=== PATIENT | male | born 1970 | race Caucasian/White ===

== ENCOUNTER → 2021-02-02 | Day surgery (SDC) | payer OTHER ==
[~2021-02-02] MED LIST: Albumin 25% 100 ML ONE; Lidocaine 1% PF 5 ML VIAL ONE; Sodium Bicarbonate 2.5 MEQ/5 ML VIAL ONE
[2021-02-02 09:27] VITALS: BP 105/58; TEMP 98.2
== END ==
LOC: CSHULT 08:39
PROVIDERS: ATTEND Physician Assistant Medical
DX: R18.8 Other ascites (principal)
CPT/HCPCS: 49083; P9047

== ENCOUNTER → 2021-02-09 | Day surgery (SDC) | payer OTHER | LOC: CSHULT 08:16 | PROVIDERS: ATTEND Physician Assistant Medical | DX: R18.8 Other ascites (principal) | CPT/HCPCS: 49083; P9047 ==

== ENCOUNTER 2021-02-22 10:47 | Day surgery (SDC) | payer OTHER ==
[2021-02-22] MEDS ORDERED: Lidocaine 1% PF 5 ML VIAL ONE (11:12)
[2021-02-22] MEDS ORDERED: Sodium Bicarbonate 2.5 MEQ/5 ML VIAL ONE (11:13)
[2021-02-22 11:27] VITALS: BP 135/75; TEMP 97.3
[2021-02-22] MEDS ORDERED: FLU VACC QS2021-22(6MOS UP)/PF 60 MCG/0.5 ML SYRINGE IM ONE (11:30)
[2021-02-22] MEDS ORDERED: Albumin 25% 100 ML ONE (11:57)
== END 2021-02-22 12:45 | disposition home or self-care (01) ==
LOC: CSHULT 10:47
PROVIDERS: ATTEND Physician Assistant Medical
DX: R18.8 Other ascites (principal)
CPT/HCPCS: 49083; P9047

== ENCOUNTER 2021-02-26 14:12 | Outpatient (CLI) | payer SELFPAY ==
[2021-02-26] MEDS ORDERED: Albumin 25% 100 ML ONE (14:30)
[2021-02-26] MEDS ORDERED: Lidocaine 1% PF 5 ML VIAL ONE (14:33)
[2021-02-26] MEDS ORDERED: Sodium Bicarbonate 2.5 MEQ/5 ML VIAL ONE (14:33)
[2021-02-26 14:53] VITALS: BP 113/68; TEMP 97.8
[2021-02-26] MEDS ORDERED: FLU VACC QS2021-22(6MOS UP)/PF 60 MCG/0.5 ML SYRINGE IM ONE (15:45)
[2021-02-26 15:54] LABS: BF Color Yellow; Body Fluid Source Ascites Body Fluid; Clarity Hazy (Clear); Tube # EDTA
[2021-02-26 16:16] LABS: BF Segmented Neutrophils 2 %; Cell Count Non Hematic 82 %; Lymphocytes 16 %
== END 2021-02-26 15:37 | disposition home or self-care (01) ==
LOC: CSHCCL 14:12
PROVIDERS: ATTEND Physician Assistant Medical
DX: K70.31 Alcoholic cirrhosis of liver with ascites (principal)
CPT/HCPCS: 49083; 87070; 87205; 89051; P9047

== ENCOUNTER 2021-03-02 08:40 | Day surgery (SDC) | payer OTHER ==
[2021-03-02] MEDS ORDERED: Lidocaine 1% PF 5 ML VIAL ONE (09:53)
[2021-03-02] MEDS ORDERED: Sodium Bicarbonate 2.5 MEQ/5 ML VIAL ONE (09:53)
[2021-03-02] MEDS ORDERED: Albumin 25% 100 ML ONE (09:57)
[2021-03-02 11:46] LABS: Anion Gap 15 mmol/L (10-20); BUN (Urea Nitrogen) 43 mg/dL (8.9-20.6); Calc. Creatinine Clearance 0 mL/min (70-130); Calcium 9.3 mg/dL (7.8-10.44); Carbon Dioxide 18 mmol/L (22-29); Chloride 99 mmol/L (98-107); Glucose 146 mg/dL (70-105); Potassium 4.1 mmol/L (3.5-5.1); Sodium 128 mmol/L (136-145)
== END 2021-03-02 11:25 | disposition home or self-care (01) ==
LOC: CSHULT 08:40
PROVIDERS: ATTEND Physician Assistant Medical
DX: R18.8 Other ascites (principal); K74.60 Unspecified cirrhosis of liver; I85.10 Secondary esophageal varices without bleeding
CPT/HCPCS: 49083; 80048; P9047

== ENCOUNTER 2021-03-05 08:49 | Day surgery (SDC) | payer SELFPAY ==
[2021-03-05 09:35] VITALS: BP 109/66; TEMP 97.6
[2021-03-05] MEDS ORDERED: Lidocaine 1% PF 5 ML VIAL ONE (09:39)
[2021-03-05] MEDS ORDERED: Albumin 25% 100 ML ONE (09:39)
[2021-03-05] MEDS ORDERED: Sodium Bicarbonate 2.5 MEQ/5 ML VIAL ONE (09:40)
[2021-03-05] MEDS ORDERED: FLU VACC QS2021-22(6MOS UP)/PF 60 MCG/0.5 ML SYRINGE IM ONE (10:00)
== END 2021-03-05 10:29 | disposition home or self-care (01) ==
LOC: CSHULT 08:49
PROVIDERS: ATTEND Internal Medicine Gastroenterology
DX: R18.8 Other ascites (principal)
CPT/HCPCS: 49083; P9047

== ENCOUNTER 2021-03-09 08:48 | Day surgery (SDC) | payer OTHER ==
[2021-03-09] MEDS ORDERED: Sodium Bicarbonate 2.5 MEQ/5 ML VIAL ONE (08:58)
[2021-03-09 09:30] VITALS: BP 127/76
[2021-03-09] MEDS ORDERED: Albumin 25% 100 ML ONE (09:33)
[2021-03-09] MEDS ORDERED: Lidocaine 1% PF 5 ML VIAL ONE (09:34)
[2021-03-09] MEDS ORDERED: FLU VACC QS2021-22(6MOS UP)/PF 60 MCG/0.5 ML SYRINGE IM ONE (09:45)
== END 2021-03-09 10:30 | disposition home or self-care (01) ==
LOC: CSHULT 08:48
PROVIDERS: ATTEND Physician Assistant Medical
DX: R18.8 Other ascites (principal); K74.60 Unspecified cirrhosis of liver
CPT/HCPCS: 49083; P9047

== ENCOUNTER 2021-03-12 08:59 | Day surgery (SDC) | payer OTHER ==
[2021-03-12] MEDS ORDERED: Lidocaine 1% PF 5 ML VIAL ONE (09:06)
[2021-03-12] MEDS ORDERED: Albumin 25% 100 ML ONE (09:06)
[2021-03-12] MEDS ORDERED: Sodium Bicarbonate 2.5 MEQ/5 ML VIAL ONE (09:06)
[2021-03-12 09:31] VITALS: BP 120/64; TEMP 97.2
== END 2021-03-12 10:34 | disposition home or self-care (01) ==
LOC: CSHULT 08:59
PROVIDERS: ATTEND Physician Assistant Medical
DX: R18.8 Other ascites (principal)
CPT/HCPCS: 49083; P9047

== ENCOUNTER 2021-03-16 08:57 | Day surgery (SDC) | payer OTHER ==
[2021-03-16] MEDS ORDERED: Albumin 25% 100 ML ONE (09:43)
[2021-03-16] MEDS ORDERED: Lidocaine 1% w/Epinephrine 1:200K 30 ML VIAL ONE ×2 (09:43)
[2021-03-16] MEDS ORDERED: Lidocaine 1% PF 5 ML VIAL ONE (09:44)
[2021-03-16 09:45] LABS: #Basophils 0.1 10x3/uL (0.0-0.2); #Eosinphils 0.3 10x3/uL (0.0-0.5); #Monocytes 0.8 10x3/uL (0.0-1.1); #Neutrophils 7.4 10x3/uL (1.5-8.4); %Basophils 0.8 % (0.0-2.0); %Eosinophils 2.9 % (0.0-6.0); %Lymphocytes 8.8 % (18.0-47.0); %Monocytes 8.2 % (0.0-10.0); %Neutrophils 78.2 % (40.0-75.0); Hemoglobin 10.9 g/dL (13.5-17.5); Mean Corpuscular HGB CONC 33.6 g/dL (32.0-36.0); Mean Corpuscular Hemoglobin 28.5 pg (27.0-33.0); Mean Corpuscular Volume 84.6 fl (81.2-95.1); Mean Platelet Volume 9.5 fl (7.4-10.4); Platelet Count 178 10x3/uL (150-450); RBC Distribution Width 18.4 % (11.5-14.5); Red Blood Cell (RBC) Count 3.83 10x6/uL (4.32-5.72); White Blood Cell (WBC) Count 9.5 10x3/uL (3.5-10.5)
[2021-03-16 09:53] LABS: PTT 27.5 sec (22.0-33.0)
== END 2021-03-16 11:10 | disposition home or self-care (01) ==
LOC: CSHULT 08:57
PROVIDERS: ATTEND Physician Assistant Medical
DX: R18.8 Other ascites (principal)
CPT/HCPCS: 49083; 85025; 85610; 85730; P9047

== ENCOUNTER 2021-03-25 11:51 | Day surgery (SDC) | payer OTHER ==
[2021-03-25] MEDS ORDERED: Lidocaine 1% PF 5 ML VIAL ONE (12:16)
[2021-03-25] MEDS ORDERED: Albumin 25% 100 ML ONE (12:16)
[2021-03-25 13:41] VITALS: BP 108/62; TEMP 97.8
== END 2021-03-25 13:30 | disposition home or self-care (01) ==
LOC: CSHULT 11:51
PROVIDERS: ATTEND Physician Assistant Medical
DX: R18.8 Other ascites (principal); Z79.899 Other long term (current) drug therapy; C22.0 Liver cell carcinoma; K74.60 Unspecified cirrhosis of liver
CPT/HCPCS: 49083; P9047

== ENCOUNTER 2021-03-29 10:09 | Day surgery (SDC) | payer OTHER ==
[2021-03-29] MEDS ORDERED: Lidocaine 1% PF 5 ML VIAL ONE (10:28)
[2021-03-29] MEDS ORDERED: Sodium Bicarbonate 2.5 MEQ/5 ML VIAL ONE (10:28)
[2021-03-29] MEDS ORDERED: Albumin 25% 100 ML ONE (10:28)
[2021-03-29] MEDS ORDERED: Ondansetron PF 4 MG/2 ML Vial ONE (10:33)
== END 2021-03-29 11:45 | disposition home or self-care (01) ==
LOC: CSHULT 10:09
PROVIDERS: ATTEND Physician Assistant Medical
DX: R18.8 Other ascites (principal)
CPT/HCPCS: 49083; J2405; P9047

== ENCOUNTER 2021-04-02 08:29 | Day surgery (SDC) | payer OTHER ==
[2021-04-02] MEDS ORDERED: Ondansetron PF 4 MG/2 ML Vial ONE (09:08)
[2021-04-02] MEDS ORDERED: Lidocaine 1% PF 5 ML VIAL ONE (09:08)
[2021-04-02] MEDS ORDERED: Albumin 25% 100 ML ONE (09:08)
[2021-04-02] MEDS ORDERED: Sodium Bicarbonate 2.5 MEQ/5 ML VIAL ONE (09:08)
[2021-04-02] MEDS ORDERED: FLU VACC QS2021-22(6MOS UP)/PF 60 MCG/0.5 ML SYRINGE IM ONE (09:15)
== END 2021-04-02 10:01 | disposition home or self-care (01) ==
LOC: CSHULT 08:29
PROVIDERS: ATTEND Physician Assistant Medical
DX: R18.8 Other ascites (principal)
CPT/HCPCS: 49083; J2405; P9047

== ENCOUNTER 2021-04-06 08:44 | Day surgery (SDC) | payer OTHER ==
[2021-04-06] MEDS ORDERED: Ondansetron PF 4 MG/2 ML Vial ONE (09:11)
[2021-04-06] MEDS ORDERED: Lidocaine 1% PF 5 ML VIAL ONE (09:11)
[2021-04-06] MEDS ORDERED: Albumin 25% 100 ML ONE (09:12)
[2021-04-06] MEDS ORDERED: Sodium Bicarbonate 2.5 MEQ/5 ML VIAL ONE (09:12)
[2021-04-06 10:40] VITALS: TEMP 98.6
== END 2021-04-06 10:30 | disposition home or self-care (01) ==
LOC: CSHULT 08:44
PROVIDERS: ATTEND Physician Assistant Medical
DX: R18.8 Other ascites (principal); K74.60 Unspecified cirrhosis of liver; I85.00 Esophageal varices without bleeding; C22.0 Liver cell carcinoma
CPT/HCPCS: 49083; J2405; P9047

== ENCOUNTER → 2021-04-13 | Day surgery (SDC) | payer OTHER ==
[~2021-04-13] MED LIST changes: +Ondansetron PF 4 MG/2 ML Vial ONE
== END ==
LOC: CSHULT 09:14 → CSHRAD 09:14 → EDSTATUS 12:25
PROVIDERS: ATTEND Physician Assistant Medical
DX: R18.8 Other ascites (principal)
CPT/HCPCS: 49083; J2405; P9047

== ENCOUNTER 2021-05-04 09:00 | Day surgery (SDC) | payer OTHER ==
[2021-05-04] MEDS ORDERED: Albumin 25% 200 ML ONE (09:39)
[2021-05-04] MEDS ORDERED: Lidocaine 1% PF 5 ML VIAL ONE (09:40)
[2021-05-04] MEDS ORDERED: Sodium Bicarbonate 2.5 MEQ/5 ML VIAL ONE (09:40)
[2021-05-04] MEDS ORDERED: Sterile Water 0 ML ONE (09:47)
[2021-05-04] MEDS ORDERED: Ondansetron PF 4 MG/2 ML Vial ONE (09:47)
[2021-05-04 12:21] VITALS: BP 134/82; TEMP 97.8
== END 2021-05-04 11:00 | disposition home or self-care (01) ==
LOC: CSHULT 09:00
PROVIDERS: ATTEND Physician Assistant Medical
DX: R18.8 Other ascites (principal); K74.60 Unspecified cirrhosis of liver
CPT/HCPCS: 49083; J2405; P9047

== ENCOUNTER 2021-05-10 12:30 | Day surgery (SDC) | payer OTHER ==
[2021-05-10] MEDS ORDERED: Lidocaine 1% PF 5 ML VIAL ONE (13:12)
[2021-05-10] MEDS ORDERED: Albumin 25% 200 ML ONE (13:12)
[2021-05-10] MEDS ORDERED: Sodium Bicarbonate 2.5 MEQ/5 ML VIAL ONE (13:13)
[2021-05-10] MEDS ORDERED: Ondansetron PF 4 MG/2 ML Vial ONE (13:19)
[2021-05-10 14:52] VITALS: BP 143/87; TEMP 98.5
== END 2021-05-10 14:11 | disposition home or self-care (01) ==
LOC: CSHULT 12:30
PROVIDERS: ATTEND Physician Assistant Medical
DX: R18.8 Other ascites (principal); C22.0 Liver cell carcinoma; K74.60 Unspecified cirrhosis of liver; Z79.899 Other long term (current) drug therapy
CPT/HCPCS: 49083; J2405; P9047

== ENCOUNTER 2021-05-17 07:39 | Day surgery (SDC) | payer OTHER ==
[~2021-05-17 07:39] MED LIST changes: -Albumin 25% 100 ML ONE; +FLU VACC QS2021-22(6MOS UP)/PF 60 MCG/0.5 ML SYRINGE IM ONE; -Lidocaine 1% PF 5 ML VIAL ONE; -Ondansetron PF 4 MG/2 ML Vial ONE; -Sodium Bicarbonate 2.5 MEQ/5 ML VIAL ONE
[2021-05-17] MEDS ORDERED: Sodium Bicarbonate 2.5 MEQ/5 ML VIAL ONE (07:49)
[2021-05-17] MEDS ORDERED: Albumin 25% 100 ML ONE ×2 (07:49)
[2021-05-17] MEDS ORDERED: Lidocaine 1% PF 5 ML VIAL ONE (07:59)
[2021-05-17 08:03] VITALS: BP 138/91; TEMP 97.4
[2021-05-17] MEDS ORDERED: Ondansetron ODT 4 MG TAB ONE (08:17)
[2021-05-17] MEDS ORDERED: Ondansetron PF 4 MG/2 ML Vial ONE (08:20)
== END 2021-05-17 09:15 | disposition home or self-care (01) ==
LOC: CSHULT 07:39
PROVIDERS: ATTEND Physician Assistant Medical
DX: R18.8 Other ascites (principal)
CPT/HCPCS: 49083; J2405; P9047; Q0162

== ENCOUNTER 2021-05-24 09:09 | Day surgery (SDC) | payer OTHER ==
[2021-05-24] MEDS ORDERED: Albumin 25% 200 ML ONE (09:52)
[2021-05-24] MEDS ORDERED: Ondansetron PF 4 MG/2 ML Vial ONE (09:53)
[2021-05-24] MEDS ORDERED: Sodium Bicarbonate 2.5 MEQ/5 ML VIAL ONE (09:53)
[2021-05-24] MEDS ORDERED: Lidocaine 1% PF 5 ML VIAL ONE ×2 (09:56→10:05)
[2021-05-24 10:53] VITALS: TEMP 97.8
== END 2021-05-24 11:25 | disposition home or self-care (01) ==
LOC: CSHULT 09:09
PROVIDERS: ATTEND Physician Assistant Medical
DX: R18.8 Other ascites (principal)
CPT/HCPCS: 49083; J2405; P9047

== ENCOUNTER 2021-05-28 12:57 | Day surgery (SDC) | payer OTHER ==
[2021-05-28 13:36] VITALS: BP 114/67; TEMP 97.4
[2021-05-28] MEDS ORDERED: FLU VACC QS2021-22(6MOS UP)/PF 60 MCG/0.5 ML SYRINGE IM ONE (13:45)
== END 2021-05-28 14:21 | disposition home or self-care (01) ==
LOC: CSHULT 12:57
PROVIDERS: ATTEND Physician Assistant Medical
DX: R18.8 Other ascites (principal)
CPT/HCPCS: 49083

== ENCOUNTER 2021-07-01 07:59 | Day surgery (SDC) | payer OTHER ==
[2021-07-01] MEDS ORDERED: Sodium Bicarbonate 2.5 MEQ/5 ML VIAL ONE (08:44)
[2021-07-01] MEDS ORDERED: Albumin 25% 100 ML ONE ×2 (08:44→09:57)
[2021-07-01] MEDS ORDERED: Lidocaine 1% PF 5 ML VIAL ONE (08:44)
[2021-07-01] MEDS ORDERED: Ondansetron PF 4 MG/2 ML Vial ONE (08:45)
[2021-07-01 10:01] VITALS: BP 93/55; TEMP 97.8
== END 2021-07-01 10:20 | disposition home or self-care (01) ==
LOC: CSHULT 07:59
PROVIDERS: ATTEND Physician Assistant Medical
DX: R18.8 Other ascites (principal); K74.60 Unspecified cirrhosis of liver; F17.220 Nicotine dependence, chewing tobacco, uncomplicated
CPT/HCPCS: 49083; J2405; P9047

== ENCOUNTER 2021-07-22 07:16 | Day surgery (SDC) | payer OTHER ==
[2021-07-22] MEDS ORDERED: Albumin 25% 100 ML ONE ×2 (07:52→08:03)
[2021-07-22] MEDS ORDERED: Lidocaine 1% PF 5 ML VIAL ONE (08:03)
[2021-07-22] MEDS ORDERED: Sodium Bicarbonate 2.5 MEQ/5 ML VIAL ONE (08:04)
[2021-07-22] MEDS ORDERED: Ondansetron PF 4 MG/2 ML Vial ONE (08:08)
[2021-07-22 08:39] VITALS: BP 95/59
== END 2021-07-22 09:05 | disposition home or self-care (01) ==
LOC: CSHULT 07:16
PROVIDERS: ATTEND Physician Assistant Medical
DX: R18.8 Other ascites (principal)
CPT/HCPCS: 49083; J2405; P9047

== ENCOUNTER 2021-07-29 07:28 | Day surgery (SDC) | payer OTHER ==
[2021-07-29] MEDS ORDERED: Ondansetron PF 4 MG/2 ML Vial ONE (07:45)
[2021-07-29] MEDS ORDERED: Lidocaine 1% PF 5 ML VIAL ONE (07:45)
[2021-07-29] MEDS ORDERED: Sodium Bicarbonate 2.5 MEQ/5 ML VIAL ONE (07:45)
[2021-07-29] MEDS ORDERED: Albumin 25% 200 ML ONE (07:46)
[2021-07-29 08:05] VITALS: BP 97/55
== END 2021-07-29 09:45 | disposition home or self-care (01) ==
LOC: CSHULT 07:28
PROVIDERS: ATTEND Physician Assistant Medical
DX: R18.8 Other ascites (principal)
CPT/HCPCS: 49083; J2405; P9047

== ENCOUNTER 2021-08-05 07:47 | Day surgery (SDC) | payer OTHER ==
[2021-08-05] MEDS ORDERED: Sodium Bicarbonate 2.5 MEQ/5 ML VIAL ONE (08:42)
[2021-08-05] MEDS ORDERED: Albumin 25% 100 ML ONE ×2 (08:42→08:59)
[2021-08-05] MEDS ORDERED: Lidocaine 1% PF 5 ML VIAL ONE (08:42)
[2021-08-05 09:05] VITALS: BP 109/58; TEMP 97.2
[2021-08-05 09:08] LABS: Hemoglobin 10.5 g/dL (13.5-17.5); Mean Corpuscular HGB CONC 37.2 g/dL (32.0-36.0); Mean Corpuscular Hemoglobin 33.9 pg (27.0-33.0); Mean Platelet Volume 10.8 fl (7.4-10.4); Platelet Count 80 10x3/uL (150-450); RBC Distribution Width 21.2 % (11.5-14.5); White Blood Cell (WBC) Count 5.6 10x3/uL (3.5-10.5)
[2021-08-05 09:17] LABS: INR-International Normal Ratio 1.2; Prothrombin Time 13.1 sec (9.5-12.1)
== END 2021-08-05 09:35 | disposition home or self-care (01) ==
LOC: CSHULT 07:47
PROVIDERS: ATTEND Physician Assistant Medical
DX: R18.8 Other ascites (principal)
CPT/HCPCS: 49083; 85027; 85610; P9047

== ENCOUNTER → 2021-08-12 | Day surgery (SDC) | payer OTHER ==
[~2021-08-12] MED LIST changes: +Albumin 25% 200 ML ONE; -FLU VACC QS2021-22(6MOS UP)/PF 60 MCG/0.5 ML SYRINGE IM ONE; +Lidocaine 1% PF 5 ML VIAL ONE; +Ondansetron PF 4 MG/2 ML Vial ONE; +Sodium Bicarbonate 2.5 MEQ/5 ML VIAL ONE
[2021-08-12 10:04] LABS: Body Fluid Source Paracentesis Fluid
[2021-08-12 10:05] LABS: BF Color Yellow; Clarity Hazy (Clear); Tube # EDTA
[2021-08-12 10:44] VITALS: TEMP 98.7
[2021-08-12 11:32] LABS: BF Segmented Neutrophils 51 %; Cell Count Non Hematic 42 %; Lymphocytes 7 %
== END ==
LOC: CSHULT 07:44
PROVIDERS: ATTEND Physician Assistant Medical
DX: R18.8 Other ascites (principal)
CPT/HCPCS: 49083; 82042; 84157; 87070; 87077; 87186; 87205; 88112; 88305; 89051; J2405; P9047

== ENCOUNTER → 2021-08-19 | Day surgery (SDC) | payer OTHER ==
[2021-08-19 08:40] VITALS: BP 99/57; TEMP 98
== END ==
LOC: CSHULT 07:43
PROVIDERS: ATTEND Physician Assistant Medical
DX: R18.8 Other ascites (principal)
CPT/HCPCS: 49083; J2405; P9047

== ENCOUNTER 2021-08-26 08:06 | Day surgery (SDC) | payer OTHER ==
[2021-08-26] MEDS ORDERED: Sodium Bicarbonate 2.5 MEQ/5 ML VIAL ONE (08:10)
[2021-08-26] MEDS ORDERED: Lidocaine 1% PF 5 ML VIAL ONE (08:10)
[2021-08-26] MEDS ORDERED: Ondansetron PF 4 MG/2 ML Vial ONE (08:26)
[2021-08-26] MEDS ORDERED: Albumin 25% 200 ML ONE (08:42)
== END 2021-08-26 09:46 | disposition home or self-care (01) ==
LOC: CSHULT 08:06
PROVIDERS: ATTEND Physician Assistant Medical
DX: R18.8 Other ascites (principal); K74.60 Unspecified cirrhosis of liver
CPT/HCPCS: 49083; J2405; P9047